=== PATIENT | male | born 1960 | race African-American/Black ===

== ENCOUNTER 2018-04-17 04:44 | Inpatient (IN) | payer MEDICARE, MEDICAID ==
[2018-04-17] MEDS ORDERED: Sodium Chloride 0.9% 1,000 ML IV ONE ×3 (05:17→09:29)
--- NOTE | 2018-04-17 05:29 | ED Physician Chart ---
ED Chief Complaint/HPI - Patient Information Date Seen:: 04/17/18 Time Seen:: 04:50 Chief Complaint:: Abdominal Pain History of Present Illness:: onset x 3 hours of intermittent, crampy, epigastric and rajeev-umbilical abdominal pain, N/V/D x 10; pt denies trauma, H/As, S/T, neck pain, C/P, SOB, cough, A/C, fever, chills, or urinary s/s Allergies:: Allergies Allergy/AdvReac Type Severity Reaction Status Date / Time morphine Allergy Verified 04/17/18 05:07 Vitals:: Vital Signs - 8 hr 04/17/18 04:50 Temp 98.0 F HR 104 RR 18 BP 123/88 O2 Sat % 98 Historian:: Patient Review:: Nurse's Note Reviewed ED Review of Systems - Review of Systems General/Constitutional: No fever, No chills, No weight loss, No weakness, No diaphoresis, No edema, No loss of appetite Skin: No skin lesions, No rash, No bruising Head: No headache, No light-headedness Eyes: No loss of vision, No pain, No diplopia ENT: No earache, No nasal drainage, No sore throat, No tinnitus Neck: No neck pain, No swelling, No thyromegaly, No stiffness, No mass noted Cardio Vascular: No chest pain, No palpitations, No PND, No orthopnea, No edema Pulmonary: No SOB, No cough, No sputum, No wheezing GI: Nausea, Vomiting, Diarrhea, Pain, No melena, No hematochezia, No constipation, No hematemesis G/U: No dysuria, No frequency, No hematuria, No nacturia Musculoskeletal: No bone or joint pain, No back pain, No muscle pain Endocrine: No polyuria, No polydipsia Psychiatric: No prior psych history, No depression, No anxiety, No suicidal ideation, No homicidal ideation, No auditory hallucination, No visual hallucination Hematopoietic: No bruising, No lymphadenopathy Allergic/Immuno: No urticaria, No angioedema Neurological: No syncope, No focal symptoms, No weakness, No paresthesia, No headache, No seizure, No dizziness, No confusion, No vertigo ED Past Medical History - Past Medical History Obtainable: Yes Past Medical History: HTN, DM, Dyslipidemia, PUD/GERD, Other (Pancreatitis) Family History: Diabetes Melitus, HTN Social History: Non Smoker, Alcohol, No Drug Use, Single Surgical History: None Psychiatricy History: None Medication: Reviewed Family Medical History - Family Member Mother History Unknown: Yes ED Physical Exam - Physical Examination General/Constitutional: Awake, Well-developed, well-nourished, Alert, No distress, GCS 15, Non-toxic appearing, Ambulatory Head: Atraumatic Eyes: Lids, conjuctiva normal, PERRL, EOMI Skin: Nl inspection, No rash, No skin lesions, No ecchymosis, Well hydrated, No lymphadenopathy ENMT: External ears, nose nl, TM canals nl, Nasal exam nl, Lips, teeth, gums nl , Oropharynx nl, Tonsils nl Neck: Nontender, Full ROM w/o pain, No JVD, No nuchal rigidity, No bruit, No mass, No stridor Other Neck comments:: supple; no meningeal signs; no cervical tenderness Respiratory: Nl effort/Exclusion, Clear to Auscultation, No Wheeze/Rhonchi/Rales Cardio Vascular: RRR, No murmur, gallop, rubs, NL S1 S2, Carotid/Femoral/Distal pulses equal bilaterally GI: No organomegaly, No hernia, Normal BS's, Nondistended, No mass/bruits, No McBurney tenderness, Rectum exam nl Other GI comments:: + diffuse tenderness : No CVA tenderness Extremities: No tenderness or effusion, Full ROM, normal strength in all extremities, No edema, Normal digits & nails Neuro/Psych: Alert/oriented, DTR's symmetric, Normal sensory exam, Normal motor strength, Judgement/insight normal, Mood normal, Normal gait, No focal deficits Misc: Normal back, No paraspinal tenderness ED Labs/Radiology/EKG Results - Lab Results Comments:: WBC: 12.4; Na+: 126; Glucose: 599; Ca+: 11.1 - EKG Interpretations EKG Time:: 05:27 Rate & Rhythm: 107; ST Comments:: old ASMI; non-specific st-t changes ED Septic Shock - . Is Septic Shock (SBP<90, OR Lactate>4 mmol\L) present?: No - <6hrs of presentation: Vital Signs: Vital Signs - 8 hr 04/17/18 04:50 Temp 98.0 F HR 104 RR 18 BP 123/88 O2 Sat % 98 ED Reassessment (Disposition) - Reassessment Reassessment Condition:: Improved - Diagnosis Diagnosis:: Dx: Abdominal Pain; N/V/D; AGE; Gastroenteritis; Dehydration; Hyperglycemia; Dehydration; Hyponatremia; Hypercalcemia; Uncontrolled DM; Gastroparesis - Aftercare/Follow up Instructions Aftercare/Follow-Up Instructions:: Counseled pt regarding lab results/diagnosis & need follow up, Counseled pt & family regarding lab results/diagnosis & need follow up - Patient Disposition Discharge/Transfer:: Acute Care w/in this hosp Admitted to:: Telemetry Condition at Disposition:: Stable, Improved
[2018-04-17 05:35] LABS: URINE MICROSCOPIC INDICATED? YES; URINE SOURCE CLEAN C
[2018-04-17 05:43] LABS: HEMATOCRIT 44.9 % (41.0-60); HEMOGLOBIN 15.8 gm/dL (12-16); MEAN CORPUSCULAR HEMOGLOBIN 40.9 pg (26.0-30.0); MEAN CORPUSCULAR HGB CONC 35.2 pg (28.0-36.0); MEAN PLATELET VOLUME 8.8 fl; PLATELET COUNT 105 Th/cmm (150-400); RED BLOOD COUNT 3.87 Mil/cmm (4.30-5.70); RED CELL DISTRIBUTION WIDTH 13.7 % (11.5-20.0); URINE BILIRUBIN NEGATIVE (NEGATIVE); URINE BLOOD TRACE (NEGATIVE); URINE GLUCOSE (UA) >=1000 mg/dL (NEGATIVE); URINE KETONE NEGATIVE (NEGATIVE); URINE LEUKOCYTE ESTERASE NEGATIVE (NEGATIVE); URINE NITRATE NEGATIVE (NEGATIVE); URINE PROTEIN NEGATIVE (NEGATIVE); URINE UROBILINOGEN 0.2 E.U./dL (0.2 - 1.0)
[2018-04-17 05:45] LABS: MEAN CELL VOLUME 116.1 fl (80-99); WHITE BLOOD COUNT 12.4 Th/cmm (4.8-10.8)
[2018-04-17 05:52] LABS: URINE CLARITY HAZY (CLEAR); URINE COLOR YELLOW
[2018-04-17 05:59] LABS: URINE BACTERIA OCCASIONAL /hpf (NONE SEEN); URINE EPITHELIAL CELLS OCCASIONAL /lpf (FEW); URINE RBC 0-2 /hpf (0-5); URINE WBC 0-2 /hpf (0-5)
[2018-04-17 06:04] LABS: ALBUMIN 4.5 gm/dL (4.2-5.5); ALKALINE PHOSPHATASE 116 U/L (34-104); AMYLASE SERUM 76 U/L (29-103); ANION GAP 17.2 (7.0-16.0); BILIRUBIN,TOTAL 2.4 mg/dL (0.3-1.0); BUN - UREA NITROGEN 23 mg/dL (7-25); CALCIUM SERUM 11.1 mg/dL (8.6-10.3); CHLORIDE 90 mEq/L (98-107); CHOLESTEROL 201 mg/dL (<200); CREATININE KINASE 415 U/L (30-223); GFR AFRICAN-AMERICAN > 60.0 ml/min (>90); GFR NON AFRICAN-AMERICAN > 60.0 ml/min; HDL -HIGH DENSITY LIPOPROTEIN 34 mg/dL (23-92); LIPASE 184 U/L (11-82); POTASSIUM SERUM 4.2 mEq/L (3.5-5.1); SGOT 48 U/L (13-39); SGPT/ALT 34 U/L (7-52); SODIUM SERUM 126 mEq/L (136-145); TOTAL PROTEIN,SERUM 9.1 gm/dL (6.0-8.3); TRIGLYCERIDES 426 mg/dL (<150)
[2018-04-17 06:06] LABS: GLUCOSE 599 mg/dL (70-105)
[2018-04-17 06:07] LABS: INR 1.1 (0.5-1.4); PROTHROMBIN TIME (TEST) 11.5 SECONDS (9.5-11.5)
[2018-04-17] MEDS ORDERED: INSULIN HUMAN REGULAR 100 UNITS/ML UNIT IV ONE (06:13)
[2018-04-17] MEDS ORDERED: INSULIN HUMAN REGULAR 100 UNITS/ML UNIT ONE (06:17)
[2018-04-17 06:34] LABS: MANUAL DIFF REQUIRED? YES
[2018-04-17 06:35] LABS: LYMPHOCYTE 19 % (20-50); MONOCYTE 11 % (2-10); NEUTROPHILS 70 % (40-80); PLATELET ESTIMATE DECREASED PLATELETS (NORMAL); TOTAL CELLS COUNTED 100
--- NOTE | 2018-04-17 08:36 | Diagnostic Imaging Report ---
CHEST X-RAY: AP view INDICATION: COPD COMPARISON: None FINDINGS: There is no focal consolidation or pleural effusions The heart is normal in size. The osseous structures demonstrate no acute abnormalities. IMPRESSION: No focal airspace consolidation identified.
--- NOTE | 2018-04-17 09:01 | Diagnostic Imaging Report ---
CT abdomen and pelvis without intravenous contrast Indication: Abdominal pain Comparison: None, Technique: Axial images were obtained from the lung bases to the bilateral proximal femurs without IV contrast. Coronal reconstructions were made. total DLP: 349, CTDI7.3 FINDINGS: Hypoventilatory and atelectatic changes of the lung bases are seen. There is a 3 mm nodule along the right lung base (image 1, series 5). Assessment of solid organs is limited due to lack of IV contrast. Prominent, heterogeneous cirrhotic liver is noted with areas of low density too small to accurately characterize. Hepatic granulomas are noted. Multiple gallstones are noted. No focal splenic lesions. No focal pancreatic or adrenal lesions. Lobulated renal borders are noted. Punctate nonobstructive left renal stone is noted. There is mild diverticulosis without diverticulitis. No appendicitis. No free fluid or free air. Moderate atherosclerotic vascular disease is noted. There is old mild compression deformity of T12 with what appears to be a Schmorl's node along the superior endplate. Advanced degenerative changes are seen in L5/S1 with vacuum phenomena and large subchondral gas pockets along the superior sacrum. IMPRESSION: No evidence of acute appendicitis No evidence of bowel obstruction. Mild diverticulosis without diverticulitis. Heterogeneous, cirrhotic liver with small areas of low density too small to characterize. A follow-up ultrasound or CT with IV contrast would provide for Additional detail and assessment. Evidence of previous granulomatous disease of the liver Gallstones. Atherosclerotic vascular disease 3 mm right basal lung nodule nonspecific and may be due to previous infectious or inflammatory process. Consider follow-up surveillance if indicated. Degenerative changes.
[2018-04-17] MEDS ORDERED: HYDROmorphone 2 mg/mL 1mL Vial IVP PRN ×2 (11:01→11:40)
[2018-04-17] MEDS: INSULIN ASPART SLIDING SCALE 100 UNITS/ML UNIT SUBQ SCH ×3 (12:34→21:46)
[2018-04-17 18:03] LABS: A1C % 8.4 % (4.0-6.0)
[2018-04-17] MEDS: Sodium Chloride 0.9% 1,000 ML IV SCH (18:19)
[2018-04-17] MEDS ORDERED: CIPROFLOXACIN 200 MG IV ONE (22:12)
[2018-04-17] MEDS ORDERED: [UNRECOGNIZED DRUG - OTHER] IV ONE (22:12)
[2018-04-17] MEDS: Insulin Detemir 100 units/mL 10mL Vial SUBQ SCH (22:15)
[2018-04-17] MEDS: Ciprofloxacin 400mg Premix PB 400 MG/200 ML BAG IV SCH (22:19)
--- NOTE | 2018-04-18 01:42 | History & Physical ---
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 with the following symptoms: Nausea, vomiting, diarrhea, new onset diabetes out of control, lightheadedness, cough, dehydration, abdominal pain. RECENT MEDICAL HISTORY: This patient is a 58-year-old male, who presented to the Emergency Department at [facility] with a grossly elevated glucose level of 614, grossly out of control. This is a new diagnosis for this patient, but he had not suffered from diabetes in the past. Also, abnormal physical with this patient on presentation to the Emergency Room are the following labs: Lipase elevated at 184. CPK elevated at 415, triglycerides elevated at 426. Bilirubin elevated at 2.4. SGOT elevated at 48, calcium elevated at 11.1. Urinalysis grossly abnormal. Lactic acid elevated at 2.65. EKG demonstrating an old anteroseptal infarct with mild tachycardia and left atrial enlargement. Sodium decreased at 126. White blood cell count elevated at 12.4, mean corpuscular volume elevated at 116. Positive multiple gallstones in the gallbladder. Glucose grossly elevated at 614, hemoglobin grossly elevated at 8.4. BNP was normal. Positive cirrhosis on imaging. CT scan of abdomen and pelvis and mention of a solitary right lower lobe nodule of 3 mm, also mention of granulomatous liver. The patient has been seeing Dr. River for several years since 2012. Initially presented on 2012 with abdominal pain, urinary tract infection, gastritis, pharyngitis, sinusitis and grossly elevated white blood cell count. It should also be noted this patient is a cigarette smoker and is also a moderate drinker of alcoholic beverages. The patient received a CT scan of abdomen and pelvis on presentation, received a chest x-ray, and an EKG. The ER doctor called Dr. River at approximately 10:00 a.m. on 04/17/2018 and both doctors agreed that the patient needed to be admitted. REVIEW OF SYSTEMS: HEENT: Not significant for today's admission. CHEST: Not significant for today's admission. LUNGS: Mildly significant in the sense that there is a 3 mm nodule at the base of the right lower lobe, although not for admission purposes, but should be noted and reevaluated in the future. ABDOMEN: Very significant for today's admission with the nausea, vomiting, diarrhea of several days for . Dehydration resulting from the diarrhea and vomiting. Also, the cirrhosis of the liver demonstrated on CT scan. CARDIAC: Significant for today's admission and there is an old anteroseptal infarct and mild tachycardia and probable left atrial enlargement. EXTREMITIES: Not significant for today's admission. PSYCHIATRIC: Not significant for today's admission. NEUROLOGIC: Not significant for today's admission. GENITALIA: Not significant for today's admission. PHYSICAL EXAMINATION: HEENT: Tympanic membranes are intact bilaterally. Cephalous is normal. No evidence of trauma. Extraocular motion is intact bilaterally. Pupils are equally reactive to light and accommodation bilaterally. Pharynx clear. Oropharynx and nasal are clear. CHEST: Inspiratory and expiratory movement is normal. LUNGS: Clear to auscultation. CARDIAC: Normal sinus rhythm, no gross murmurs. ABDOMEN: On examination by myself hours after admission is hyperactive bowel sounds in all 4 quadrants. No current distention. No palpable masses, no organomegaly. EXTREMITIES: Full range of motion. Motor 5/5 in all 4 extremities. NEUROLOGIC: The patient has cerebellum intact. Motor strength 5/5. Coordination and gait normal. PSYCHIATRIC: Normal mood and affect. Alert and oriented x 4. GENITALIA: Normal. No gross infections. IMPRESSION: 1. New onset severe diabetes type 2. 2. Dehydration. 3. Gastroenteritis. 4. Cholelithiasis. 5. Anorexia. 6. Old myocardial infarct. 7. Diverticulosis. 8. Liver cirrhosis. 9. Early pancreatitis. 10. Chronic obstructive pulmonary disease exacerbation. 11. Altered level of consciousness. 12. Leukocytosis. 13. Megaloblastic anemia. 14. ETOH user. 15. Cigarette smoker. PLAN: Admit to medical surgery. Referrals are Gastroenterology with Dr. Sergio Durbin for the cholelithiasis, for the liver cirrhosis, for the gastroenteritis. Cardiology with Dr. Migdalia Rodriguez for the old myocardial infarct, mild tachycardia on presentation, and the probable left atrial enlargement. Ciprofloxacin 400 mg IV piggyback q. 12 hours. Saline 0.9 IV flowing at 50 mL per hour, Dilaudid 2 mg IV slow push q. 6 hours p.r.n. pain. Clear liquid diet. D-dimer, BNP, EKG, sliding scale Novolin R, Levemir 30 units subcutaneous at bedtime. The sliding scale Novolin is going to be administered 4 times a day q. 6 hours with a maximum of 12 units each application. Protonix 20 mg IV q. 24. We are going to add TriCor 48 mg for the other diagnosis of hypertriglyceridemia. JOB# [id number]
[2018-04-18] MEDS: Sodium Chloride 0.9% 1,000 ML IV SCH (07:30)
[2018-04-18] MEDS: INSULIN ASPART SLIDING SCALE 100 UNITS/ML UNIT SUBQ SCH ×4 (08:09→20:50)
[2018-04-18] MEDS: Ciprofloxacin 400mg Premix PB 400 MG/200 ML BAG IV SCH ×2 (08:13→20:45)
[2018-04-18] MEDS ORDERED: Fenofibrate, Micronized 134 mg Cap PO SCH (09:00)
[2018-04-18] MEDS: Fenofibrate, Micronized 134 mg Cap PO SCH (09:40)
[2018-04-18] MEDS: HYDROmorphone 2 mg/mL 1mL Vial IVP PRN ×2 (12:09→19:26)
[2018-04-18] MEDS ORDERED: INSULIN ASPART SLIDING SCALE 100 UNITS/ML UNIT SUBQ SCH (16:48)
[2018-04-18 19:41] LABS: URINE MICROSCOPIC INDICATED? YES; URINE SOURCE MIDSTREAM
[2018-04-18 19:43] LABS: URINE BILIRUBIN NEGATIVE (NEGATIVE); URINE BLOOD NEGATIVE (NEGATIVE); URINE GLUCOSE (UA) >=1000 mg/dL (NEGATIVE); URINE KETONE NEGATIVE (NEGATIVE); URINE LEUKOCYTE ESTERASE NEGATIVE (NEGATIVE); URINE NITRATE NEGATIVE (NEGATIVE); URINE PROTEIN NEGATIVE (NEGATIVE)
[2018-04-18 19:50] LABS: URINE CLARITY CLEAR (CLEAR); URINE COLOR YELLOW
[2018-04-18 19:51] LABS: URINE BACTERIA NONE SEEN /hpf (NONE SEEN); URINE EPITHELIAL CELLS FEW /lpf (FEW); URINE RBC 0-2 /hpf (0-5); URINE WBC 0-2 /hpf (0-5)
[2018-04-18] MEDS ORDERED: Insulin Detemir 100 units/mL 10mL Vial SUBQ SCH (21:00)
[2018-04-18] MEDS: Insulin Detemir 100 units/mL 10mL Vial SUBQ SCH (21:20)
[2018-04-19] MEDS ORDERED: Multivitamin Inj 10 ML, Thiamine HCL 100 MG, Magnesium Sulfate 2 GM, Folic Acid 1 MG in... IV SCH
[2018-04-19 08:13] LABS: ALBUMIN 3.4 gm/dL (4.2-5.5); ALKALINE PHOSPHATASE 74 U/L (34-104); ANION GAP 11.1 (7.0-16.0); BILIRUBIN,TOTAL 1.5 mg/dL (0.3-1.0); BUN - UREA NITROGEN 10 mg/dL (7-25); CARBON DIOXIDE 23.8 mEq/L (21.0-31.0); CHLORIDE 100 mEq/L (98-107); CREATININE - SERUM 0.7 mg/dL (0.7-1.3); GFR AFRICAN-AMERICAN > 60.0 ml/min (>90); GFR NON AFRICAN-AMERICAN > 60.0 ml/min; GLUCOSE 248 mg/dL (70-105); LIPASE 115 U/L (11-82); POTASSIUM SERUM 3.9 mEq/L (3.5-5.1); SGOT 73 U/L (13-39); SGPT/ALT 41 U/L (7-52); SODIUM SERUM 131 mEq/L (136-145); TOTAL PROTEIN,SERUM 6.7 gm/dL (6.0-8.3); TRIGLYCERIDES 260 mg/dL (<150)
[2018-04-19 08:25] LABS: HEMATOCRIT 37.7 % (41.0-60); MEAN CORPUSCULAR HEMOGLOBIN 39.8 pg (26.0-30.0); MEAN CORPUSCULAR HGB CONC 34.4 pg (28.0-36.0); MEAN PLATELET VOLUME 8.5 fl; PLATELET COUNT 107 Th/cmm (150-400); RED BLOOD COUNT 3.26 Mil/cmm (4.30-5.70); RED CELL DISTRIBUTION WIDTH 13.6 % (11.5-20.0); WHITE BLOOD COUNT 7.5 Th/cmm (4.8-10.8)
[2018-04-19 08:31] LABS: BAND NEUTROPHILE 2 % (0-10); BASOPHIL 0 % (0-3); EOSINOPHIL 0 % (0-5); LYMPHOCYTE 20 % (20-50); MANUAL DIFF REQUIRED? YES; MEAN CELL VOLUME 115.6 fl (80-99); MONOCYTE 13 % (2-10); NEUTROPHILS 65 % (40-80); TOTAL CELLS COUNTED 100
[2018-04-19 08:32] LABS: PLATELET ESTIMATE DECREASED PLATELETS (NORMAL)
--- NOTE | 2018-04-19 08:35 | Consultation ---
DATE OF CONSULTATION: 04/18/2018 REASON FOR CONSULTATION: Nausea, vomiting, and liver disease. HISTORY OF PRESENT ILLNESS: This consult was obtained through the request of Dr. River for this 58-year-old with history of alcohol abuse, who presented to the hospital with abdominal pain, nausea, vomiting, diarrhea, then found to have diabetes. The patient was not aware of it. While in the hospital, x-ray showed possible liver disease. GI consult was called in for further evaluation. The patient has elevation of lipase. The patient at this time feels better, started having soft bowel movement. No more nausea or vomiting. PAST MEDICAL HISTORY: Back pain. MEDICATIONS: [place], Soma, and Claritin. The patient is on Cipro, TriCor, Dilaudid, Levemir insulin, and Protonix. PAST SURGICAL HISTORY: Negative. SOCIAL HISTORY: He smokes few small cigars a day and has drink alcohol 1 pint of vodka per day. No IV drug abuse. FAMILY HISTORY: Negative and noncontributory. ALLERGIES: MORPHINE. REVIEW OF SYSTEMS: He has lost 10 pounds over a month. He has been having diarrhea, nausea, vomiting about 10 times a day about several times for the last 10 days. PHYSICAL EXAMINATION: GENERAL: The patient is awake, oriented to self, place, and time, in no acute distress. VITAL SIGNS: Blood pressure is 116/68, heart rate 82, respiratory rate 17, and temperature is 97.2. HEAD AND NECK: Pupils reactive to light. Extraocular muscles intact. Sclerae are anicteric. Conjunctivae not pale. Oral cavity, no lesion. NECK: Supple. CHEST: Good air entry. LUNGS: Clear to auscultation. CARDIOVASCULAR: Regular rate and rhythm. No murmur or gallop. ABDOMEN: Soft, positive bowel sounds. Abdomen is not tender. EXTREMITIES: Lower extremities, no edema. CENTRAL NERVOUS SYSTEM: Nonfocal. LABORATORY DATA: Blood sugar was 572 on presentation. Lipase was ____ normal is 82. Liver enzymes: AST was 48, ALT 34, alkaline phosphatase is 116, and bilirubin is 2.4. The patient had a CT of the abdomen and pelvis, which showed no appendicitis, no bowel obstruction, mild diverticulosis, cirrhotic liver, gallstones. IMPRESSION: A 58-year-old with cirrhosis of the liver, alcohol abuse, nausea, vomiting, diarrhea. ASSESSMENT AND PLAN: 1. Nausea, vomiting, and abdominal pain. This picture is consistent with gastroenteritis, most likely viral. Clinically, it is improving, so at this time, there is no need for further workup. Advance diet as tolerated. Continue to monitor labs. If diarrhea comes back, then consider stool analysis. 2. The patient should have a screening colonoscopy as an outpatient, but if symptoms come back will do it sooner than this. 3. History of alcohol abuse. The patient was advised about stopping. 4. Cirrhosis of the liver, most likely secondary to alcohol abuse. The patient needs to be followed as an outpatient. Need to have an alpha fetoprotein and ultrasound every 6 months. He already had a CAT scan, so no need for ultrasound for now. Also, need to follow on hepatitis panel for further evaluation. 5. Other medical problems such as diabetes, etc., as per Dr. River. Thank you Dr. River for allowing me to participate in the care of this patient. If you have any further questions, please let me know. JOB# [id number]
[2018-04-19] MEDS ORDERED: Magnesium Sulfate 2 gm/50 mL Premix Bag IV PRN (09:00)
[2018-04-19] MEDS: INSULIN ASPART SLIDING SCALE 100 UNITS/ML UNIT SUBQ SCH ×4 (09:33→20:50)
[2018-04-19] MEDS: HYDROmorphone 2 mg/mL 1mL Vial IVP PRN ×2 (09:39→15:50)
[2018-04-19] MEDS: Ciprofloxacin 400mg Premix PB 400 MG/200 ML BAG IV SCH ×2 (09:42→20:42)
[2018-04-19] MEDS ORDERED: Magnesium Sulfate 2 gm/50 mL Premix Bag IV ONE (09:45)
[2018-04-19] MEDS: FOLIC ACID IV SCH (12:03)
[2018-04-19] MEDS: THIAMINE HCL IV SCH (12:03)
[2018-04-19] MEDS: MULTIVITAMIN IV SCH (12:03)
[2018-04-19] MEDS: [UNRECOGNIZED DRUG - OTHER] IV SCH (12:03)
[2018-04-19] MEDS: Sodium Chloride 0.9% 1,000 ML IV SCH (13:10)
[2018-04-19] MEDS: Fenofibrate, Micronized 134 mg Cap PO SCH (13:13)
--- NOTE | 2018-04-19 14:12 | Consultation ---
DATE OF CONSULTATION: 04/18/[address] Alex River. HISTORY AND PHYSICAL: This is a [id number] -[place]iquais male patient came to the Emergency Room with polyuria, polydipsia, headache, nausea, vomiting, diarrhea. The patient in the Emergency Room found to have uncontrolled diabetes, new onset and the patient is admitted. The patient at the present time had some confusion. PAST MEDICAL HISTORY: Old myocardial infarction, cirrhosis of the liver, COPD, alcohol dependence, nicotine dependence. FAMILY HISTORY: Unremarkable. SOCIAL HISTORY: The patient has a history of alcohol dependence, smoking with smoking dependence. ALLERGIES: None. PHYSICAL EXAMINATION: VITAL SIGNS: Blood pressure 130/88, pulse 88, respirations 28. HEAD: Normocephalic. No lumps or bumps. EYES: Pupils equal, reactive to light. Fundi show AV nicking, sclerae white, conjunctivae pink. NECK: Carotids 2+. Normal upstroke. JVD flat. Thyroid not palpable. Lymph nodes not palpable. CHEST: Shows increased AP diameter. No kyphosis, scoliosis. LUNGS: Bilateral bronchovesicular breath sounds. HEART: PMI fifth intercostal space with lateral to midclavicular line. S1, S2. No S3, S4, soft systolic murmur. ABDOMEN: Soft. Mild tenderness. No rebound tenderness. EXTREMITIES: Peripheral pulses 2+. No pedal edema. CLINICAL IMPRESSION: Acute pancreatitis; diabetes mellitus type 2, uncontrolled. Tachycardia, old myocardial infarction, cirrhosis of liver, gastroenteritis, diverticulosis, alcohol dependence, nicotine dependence, chronic obstructive pulmonary disease. PLAN: At the present time, we will continue present care. Continue IV fluids and get echocardiogram to evaluate for possible cardiomyopathy. JOB# [id number]
[2018-04-19] MEDS: Insulin Detemir 100 units/mL 10mL Vial SUBQ SCH (21:59)
[2018-04-20] MEDS: HYDROmorphone 2 mg/mL 1mL Vial IVP PRN ×2 (01:16→10:08)
[2018-04-20] MEDS: Sodium Chloride 0.9% 1,000 ML IV SCH (03:57)
[2018-04-20] MEDS: INSULIN ASPART SLIDING SCALE 100 UNITS/ML UNIT SUBQ SCH ×2 (08:05→12:59)
[2018-04-20] MEDS: Fenofibrate, Micronized 134 mg Cap PO SCH (08:15)
[2018-04-20] MEDS: Ciprofloxacin 400mg Premix PB 400 MG/200 ML BAG IV SCH (10:03)
[2018-04-20] MEDS: [UNRECOGNIZED DRUG - OTHER] IV SCH (10:18)
[2018-04-20] MEDS: THIAMINE HCL IV SCH (10:18)
[2018-04-20] MEDS: MULTIVITAMIN IV SCH (10:18)
[2018-04-20] MEDS: FOLIC ACID IV SCH (10:18)
--- NOTE | 2018-04-21 16:31 | Cardiology ---
04/19/2018 ECHOCARDIOGRAM REPORT Patient of Dr. Alex River. M-MODE ECHOCARDIOGRAM: Mitral valve: Anterior leaflet of mitral valve shows normal excursion and velocity. Posterior leaflet of the mitral valve shows normal excursion. Left ventricle posterior wall shows increased thickness, normal excursion. Interventricular septum shows increased thickness, normal excursion, hypertrophy of the left ventricle, ejection fraction 66%. Left atrium normal. Aortic root shows normal dimension, normal excursion of aortic leaflets. CONCLUSION: Hypertrophy of the left ventricle, ejection fraction 66%. 2D ECHO: Long axis view showed normal-sized left ventricle with hypertrophy of the left ventricle. Left atrium normal. Aortic root shows normal dimension, normal excursion of aortic leaflets. Short axis view of mitral valve normal. Short axis view of aortic valve normal. Apical four chamber view showed normal-sized left ventricle with hypertrophy of the left ventricle. Left atrium normal. Right ventricular cavity, right atrium normal. No pericardial effusion. CONCLUSION: Hypertrophy of the left ventricle, ejection fraction 66%. Doppler study shows trace tricuspid regurgitation, mild mitral regurgitation, mild aortic regurgitation. Pressure half time of 598 milliseconds. Right ventricular systolic pressure 24 mmHg. JOB# [id number]
== END 2018-04-20 13:36 | disposition home or self-care (01) | DRG 444 ==
LOC: ER 04:44 → MSI 09:15
PROVIDERS: ADMIT General Practice; ATTEND General Practice
DX: K80.20 Calculus of gallbladder without cholecystitis without obstruction (principal); K85.90 Acute pancreatitis without necrosis or infection, unspecified; J44.1 Chronic obstructive pulmonary disease with (acute) exacerbation; E87.1 Hypo-osmolality and hyponatremia; E11.65 Type 2 diabetes mellitus with hyperglycemia; E86.0 Dehydration; K52.9 Noninfective gastroenteritis and colitis, unspecified; R63.0 Anorexia; F10.20 Alcohol dependence, uncomplicated; R00.0 Tachycardia, unspecified; G89.29 Other chronic pain; M54.9 Dorsalgia, unspecified; I11.9 Hypertensive heart disease without heart failure; E83.52 Hypercalcemia; E11.43 Type 2 diabetes mellitus with diabetic autonomic (poly)neuropathy; K31.84 Gastroparesis; E78.5 Hyperlipidemia, unspecified; K21.9 Gastro-esophageal reflux disease without esophagitis; K57.90 Diverticulosis of intestine, part unspecified, without perforation or abscess without bleeding; K74.60 Unspecified cirrhosis of liver; D72.829 Elevated white blood cell count, unspecified; D53.1 Other megaloblastic anemias, not elsewhere classified; F17.210 Nicotine dependence, cigarettes, uncomplicated; Z68.24 Body mass index [BMI] 24.0-24.9, adult; I25.2 Old myocardial infarction; Z79.899 Other long term (current) drug therapy; Z88.5 Allergy status to narcotic agent; Z87.11 Personal history of peptic ulcer disease; Z82.49 Family history of ischemic heart disease and other diseases of the circulatory system; Z83.3 Family history of diabetes mellitus; Z71.89 Other specified counseling
CPT/HCPCS: 36415-UA; 71045-TC; 80053-TC; 80061-TC; 81001-TC; 82010-TC; 82105-90; 82150-TC; 82550-TC; 82553; 82947-TC; 82948-90; 83036-90; 83605; 83690-TC; 83880-TC; 84478-TC; 84484-TC; 85007-TC; 85025-TC; 85027-TC; 85379-TC; 85610-TC; 93005; 96374; 96375; C9113; J0744; J1170; J1815; J1885; J2405; J3411; J3475; J7030; X6598; Z7610

== ENCOUNTER 2019-02-27 14:43 | Emergency (ER) | payer BC, MEDICAID ==
[2019-02-27 15:14] LABS: % BASOPHILS 0.4 % (0.0-2.0); % EOSINOPHILS 1.4 % (0.0-5.0); % LYMPHOCYTES 41.3 % (20.0-50.0); % NEUTROPHILS 46.9 % (40.0-80.0); EOSINOPHILE ABSOLUTE 0.1 Th/cmm (0.1-0.4); HEMATOCRIT 42.6 % (41.0-60); HEMOGLOBIN 14.3 gm/dL (12-16); LYMPHOCYTE ABSOLUTE 2.8 Th/cmm (1.5-3.0); MEAN CELL VOLUME 92.7 fl (80-99); MEAN CORPUSCULAR HEMOGLOBIN 31.2 pg (26.0-30.0); MEAN CORPUSCULAR HGB CONC 33.6 pg (28.0-36.0); MEAN PLATELET VOLUME 7.6 fl; MONOCYTE ABSOLUTE 0.7 Th/cmm (0.3-1.0); NEUTROPHILE ABSOLUTE 3.2 Th/cmm (1.8-8.0); PLATELET COUNT 173 Th/cmm (150-400); RED CELL DISTRIBUTION WIDTH 12.5 % (11.5-20.0); WHITE BLOOD COUNT 6.8 Th/cmm (4.8-10.8)
--- NOTE | 2019-02-27 15:17 | ED Physician Chart ---
ED Chief Complaint/HPI - Patient Information Date Seen:: 02/27/19 Time Seen:: 15:14 Chief Complaint:: back pain History of Present Illness:: this is a 59 yo male patient who is concerned about lower back pain Allergies:: Allergies Allergy/AdvReac Type Severity Reaction Status Date / Time morphine Allergy Verified 04/17/18 05:07 Vitals:: Vital Signs - 8 hr 02/27/19 14:58 Temp 98.6 F HR 110 RR 16 BP 130/83 O2 Sat % 94 Historian:: Patient Review:: Nurse's Note Reviewed, Old Chart Reviewed ED Review of Systems - Review of Systems General/Constitutional: No fever, No chills, No weight loss, No weakness, No diaphoresis, No edema, No loss of appetite, Other (this patient is lethargic and not able to give a reliable review of systems.) Skin: No skin lesions, No rash, No bruising Head: No headache, No light-headedness Eyes: No loss of vision, No pain, No diplopia ENT: No earache, No nasal drainage, No sore throat, No tinnitus Neck: No neck pain, No swelling, No thyromegaly, No stiffness, No mass noted Cardio Vascular: No chest pain, No palpitations, No PND, No orthopnea, No edema Pulmonary: No SOB, No cough, No sputum, No wheezing GI: No nausea, No vomiting, No diarrhea, No pain, No melena, No hematochezia, No constipation, No hematemesis G/U: No dysuria, No frequency, No hematuria Musculoskeletal: No bone or joint pain, No back pain, No muscle pain Endocrine: No polyuria, No polydipsia Psychiatric: No prior psych history, No depression, No anxiety, No suicidal ideation Hematopoietic: No bruising, No lymphadenopathy Allergic/Immuno: No urticaria, No angioedema Neurological: No syncope, No focal symptoms, No weakness, No paresthesia, No headache, No seizure, No dizziness, No confusion, No vertigo ED Past Medical History - Past Medical History Obtainable: Yes Family Medical History - Family Member Mother History Unknown: Yes Ethnicity: Non- Living Status: Still Living Hx Family Cancer: Yes Hx Family Coronary Artery Disease: Yes Hx Family Congestive Heart Failure: Yes Hx Family Hypertension: Yes Hx Family Stroke: Yes Hx Family Diabetes: Yes Hx Family Seizures: No Hx Family Dementia: Yes Hx Family AIDS: No Hx Family HIV: No Hx Family COPD: Yes Hx Family Hepatitis: Yes Hx Family Psychiatric Problems: No Hx Family Tuberculosis: No ED Physical Exam - Physical Examination General/Constitutional: Awake (the patient is lethargic under the influence of drugs), Well-developed, well-nourished, Alert, No distress, GCS 15, Non-toxic appearing, Ambulatory Head: Atraumatic Eyes: Lids, conjuctiva normal, PERRL, EOMI Skin: Nl inspection, No rash, No skin lesions, No ecchymosis, Well hydrated, No lymphadenopathy ENMT: External ears, nose nl, Nasal exam nl, Lips, teeth, gums nl Neck: Nontender, Full ROM w/o pain, No JVD, No nuchal rigidity, No bruit, No mass, No stridor Respiratory: Nl effort/Exclusion, Clear to Auscultation, No Wheeze/Rhonchi/Rales Cardio Vascular: RRR, No murmur, gallop, rubs, NL S1 S2 GI: No tenderness/rebounding/guarding, No organomegaly, No hernia, Normal BS's, Nondistended, No mass/bruits, No McBurney tenderness : No CVA tenderness Extremities: No tenderness or effusion, Full ROM, normal strength in all extremities, No edema, Normal digits & nails Neuro/Psych: Alert/oriented, DTR's symmetric, Normal sensory exam, Normal motor strength, Judgement/insight normal, Mood normal, Normal gait, No focal deficits Misc: Normal back, No paraspinal tenderness ED Labs/Radiology/EKG Results - Lab Results Results: Abnormal Lab Results 02/27/19 02/27/19 02/27/19 15:00 15:00 15:00 WBC 6.8 RBC 4.60 Hgb 14.3 Hct 42.6 MCV 92.7 MCH 31.2 H MCHC Differential 33.6 RDW 12.5 Plt Count 173 MPV 7.6 Neutrophils % 46.9 Lymphocytes % 41.3 Monocytes % 10.0 Eosinophils % 1.4 Basophils % 0.4 Sodium 138 Potassium 3.7 Chloride 103 Carbon Dioxide 21.3 Anion Gap 17.4 H BUN 11 Creatinine 1.1 Est GFR ( Amer) > 60.0 Est GFR (Non-Af Amer) > 60.0 BUN/Creatinine Ratio 10.0 Glucose 105 Calcium 9.3 Total Bilirubin 0.6 AST 36 ALT 23 Alkaline Phosphatase 80 Troponin I < 0.01 L Total Protein 7.9 Albumin 4.0 L Globulin 3.9 Albumin/Globulin Ratio 1.0 Ethyl Alcohol 202 H - Radiology Results Results: back ct = old compression fx - EKG Interpretations EKG Time:: 15:04 Rate & Rhythm: frop=129 sinus Dupree: right ED Assessment - Assessment General Assessment: ALCOHOL INTOXICATION ED Septic Shock - . Is Septic Shock (SBP<90, OR Lactate>4 mmol\L) present?: No - <6hrs of presentation: Vital Signs: Vital Signs - 8 hr 02/27/19 14:58 Temp 98.6 F HR 110 RR 16 BP 130/83 O2 Sat % 94 ED Reassessment (Disposition) - Reassessment Reassessment Condition:: Improved - Diagnosis Diagnosis:: BACK PAIN ALCOHOL INTOXICATION - Aftercare/Follow up Instructions Aftercare/Follow-Up Instructions:: Counseled pt regarding lab results/diagnosis & need follow up, Refer to Discharge Instructions, Counseled pt & family regarding lab results/diagnosis & need follow up - Patient Disposition Discharge/Transfer:: Home
[2019-02-27 15:26] LABS: ALKALINE PHOSPHATASE 80 U/L (34-104); ANION GAP 17.4 (7.0-16.0); BILIRUBIN,TOTAL 0.6 mg/dL (0.3-1.0); BUN - UREA NITROGEN 11 mg/dL (7-25); CALCIUM SERUM 9.3 mg/dL (8.6-10.3); CARBON DIOXIDE 21.3 mEq/L (21.0-31.0); CHLORIDE 103 mEq/L (98-107); CREATININE - SERUM 1.1 mg/dL (0.7-1.3); GFR AFRICAN-AMERICAN > 60.0 ml/min (>90); GFR NON AFRICAN-AMERICAN > 60.0 ml/min; GLUCOSE 105 mg/dL (70-105); POTASSIUM SERUM 3.7 mEq/L (3.5-5.1); SGOT 36 U/L (13-39); SGPT/ALT 23 U/L (7-52); SODIUM SERUM 138 mEq/L (136-145); TOTAL PROTEIN,SERUM 7.9 gm/dL (6.0-8.3)
[2019-02-27 16:35] LABS: URINE SOURCE CLEAN C
[2019-02-27 16:38] LABS: URINE BILIRUBIN NEGATIVE (NEGATIVE); URINE BLOOD NEGATIVE (NEGATIVE); URINE GLUCOSE (UA) NEGATIVE (NEGATIVE); URINE KETONE NEGATIVE (NEGATIVE); URINE LEUKOCYTE ESTERASE NEGATIVE (NEGATIVE); URINE NITRATE NEGATIVE (NEGATIVE); URINE PROTEIN NEGATIVE (NEGATIVE); URINE UROBILINOGEN 0.2 E.U./dL (0.2 - 1.0)
[2019-02-27 16:42] LABS: URINE CLARITY CLEAR (CLEAR); URINE COLOR YELLOW; URINE MICROSCOPIC INDICATED? YES
[2019-02-27 16:46] LABS: URINE BACTERIA FEW /hpf (NONE SEEN); URINE EPITHELIAL CELLS FEW /lpf (FEW); URINE RBC NONE SEEN /hpf (0-5); URINE WBC 0-2 /hpf (0-5)
[2019-02-27 16:52] LABS: AMPHETAMINE URINE NEGATIVE (NEGATIVE); BARBITURATES URINE NEGATIVE (NEGATIVE); BENZODIAZEPINES QUAL URINE POSITIVE (NEGATIVE); CANNABINOID THC NEGATIVE (NEGATIVE); COCAINE METABOLITE QUAL URINE NEGATIVE (NEGATIVE); METHADONE URINE NEGATIVE (NEGATIVE); METHAMPHETAMINES QUAL URINE NEGATIVE (NEGATIVE); OPIATES (MORPHINE) QUAL. URINE POSITIVE (NEGATIVE); PHENCYCLIDINE (PCP) URINE NEGATIVE (NEGATIVE); TRICYCLICS (TCA) QUAL. URINE NEGATIVE (NEGATIVE)
--- NOTE | 2019-02-28 09:28 | Diagnostic Imaging Report ---
Exam: CT examination lumbar cervical spine. HISTORY back pain Total DLP equals 1107 CTDI equals 38. 8 Findings: Multiple contiguous thin section of the lumbar cervical spine were obtained in axial plane with coronal and sagittal reconstruction technique. No prior studies available comparison. The study demonstrates old compression fracture deformity of the superior plate of the T12 thoracic vertebra with erosion, old osteomyelitic involvement cannot be excluded. The lumbar vertebral bodies demonstrate normal height with narrowing of the L5-S1 intervertebral disc space and vacuum disc phenomenon. There is evidence for mild retrolisthesis of the L5 lumbar vertebra. The neural canal is intact there is no evidence of prevertebral soft tissue swelling. IMPRESSION: Old deformity superior endplate T12 thoracic vertebra. 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 Clinically indicated MRI examination might be helpful.
--- NOTE | 2019-02-28 09:29 | Diagnostic Imaging Report ---
Chest x-ray single view History: Chest pain Comparison: 04/17/2018 The heart size is normal. No focal pulmonary parenchymal processes. No hilar or mediastinal abnormalities. Impression: No acute abnormalities
== END 2019-02-27 18:27 | disposition home or self-care (01) ==
LOC: ER 14:43
DX: M54.5 Low back pain (principal); F10.129 Alcohol abuse with intoxication, unspecified; Y90.7 Blood alcohol level of 200-239 mg/100 ml; Z88.5 Allergy status to narcotic agent
CPT/HCPCS: 36415-UA; 71045-TC; 72131-TC; 80053-TC; 80307; 80320-TC; 81001-TC; 84443-TC; 84484-TC; 85025-TC; 93005